=== PATIENT | male | born 1995 | race Two or more races ===

== ENCOUNTER 2020-08-10 15:00 | Emergency (ER) | payer OTHER ==
[~2020-08-10] VITALS: Ht 188 cm; Wt 77.1 kg
[2020-08-10] MEDS ORDERED: KETOROLAC TROMETH 30 MG/ML 1ML VIAL IV ONE (15:30)
[2020-08-10] MEDS ORDERED: METOCLOPRAMIDE HCL 5MG/ml INJ 2ml VIAL IV ONE (15:30)
[2020-08-10] MEDS ORDERED: SODIUM CHLORIDE 0.9% 1,000 ML IV ONE (15:30)
[2020-08-10 15:47] LABS: Hematocrit 38.1 % (41.0-53.0); Hemoglobin 13.6 g/dL (13.5-17.5); Mean Corpuscular Hgb Conc. 35.7 g/dL (32.0-36.0); Mean Corpuscular Volume 86.8 fL (80.0-100.0); Red Blood Cells 4.38 10^6/uL (4.5-5.90); Red Cell Distribution Width 12.8 % (11.8-14.3); White Blood Cell 6.7 10^3/uL (4.4-10.8)
[2020-08-10 16:03] LABS: Albumin 3.4 g/dL (3.4-5.0); Band Neutrophils % (manual) 0; Basophils % (manual) 0 (0.0-2.0); Blast Cells 0; Calcium 8.3 mg/dL (8.5-10.1); Magnesium 2.3 mg/dL (1.6-2.6); Metamyelocytes % 0; Myelocytes % 0; Potassium 3.9 mmol/L (3.5-5.1); Promyelocytes % 0
[2020-08-10 16:07] LABS: BUN/Creatinine Ratio 11.8; Bilirubin, Total 0.9 mg/dL (0.2-1.0); Total Protein 7.4 g/dL (6.4-8.2)
[2020-08-10 17:15] LABS: Eosinophils % (manual) 7 (0-7); Lymphocytes % (manual) 38 (10.0-50.0); Monocytes % (manual) 11 (0-12); Reactive Lymphocytes 7
[2020-08-10 19:06] VITALS: BP 121/78
== END 2020-08-10 19:24 | disposition home or self-care (01) ==
LOC: ER 15:00 → EDBD 15:00 → ER 19:24
DX: S30.0XXA Contusion of lower back and pelvis, initial encounter (principal); M62.838 Other muscle spasm; F41.8 Other specified anxiety disorders; F17.210 Nicotine dependence, cigarettes, uncomplicated; V49.9XXA Car occupant (driver) (passenger) injured in unspecified traffic accident, initial encounter; Y93.89 Activity, other specified; Y92.410 Unspecified street and highway as the place of occurrence of the external cause; Y99.8 Other external cause status
CPT/HCPCS: 36415; 70450; 71046; 72125; 72131; 80053; 83735; 85007; 85027